=== PATIENT | female | born 2000 | race Caucasian/White ===

== ENCOUNTER 2023-12-22 12:25 | Emergency (ER) | payer OTHER, SELFPAY ==
[2023-12-22] VITALS (8 sets, daily range): BP systolic 119–133; BP diastolic 78–92; PULSE 80–99; RESP 16; TEMP 36.8; O2SAT 89–99; BMI 27.4
[2023-12-22] MEDS: METHYLPREDNISOLONE SOD SUCC 62.5 MG/ML (125) 125 MG IVP (12:59)
--- NOTE | 2023-12-22 14:01 | ED.ALLEREA ---
HPI - Allergic Reaction General Chief complaint: Allergic Reaction Stated complaint: allergic reaction - SOB tongue swelling Time Seen by Provider: 12/22/23 12:29 History of Present Illness HPI narrative: This 23-year-old female comes in reporting an allergic reaction to some pecans. She states that she has a prior reaction to nuts and does carry an EpiPen. She did administer epinephrine to herself prior to arrival. She states that she began to feel some tightness in her throat and felt lightheadedness. She arrives here with normal vital signs and states that her symptoms have improved. This exposure to pecans occurred about half an hour prior to arrival. Related Data Home Medications ?Medication ?Instructions ?Recorded ?Confirmed Vitamin D (with calcium) 12/22/23 epinephrine 0.3 mg/0.3 mL IM 12/22/23 injection, auto-injector [id number] 360 mg/2.4 mL mg subcut 12/22/23 (150 mg/mL) subcut wearable injector (Skyrizi) Allergies Allergy/AdvReac Type Severity Reaction Status Date / Time infliximab [From Remicade] Allergy Severe Anaphylaxis Verified 12/22/23 12:35 vancomycin Allergy Intermediate rashes Verified 12/22/23 12:35 pecans Allergy Severe Anaphylaxis Uncoded 12/22/23 12:35 Review of Systems Status of ROS Reports: 10 or more systems reviewed and unremarkable except as noted in History and below Narrative Constitutional: No fevers, no weight gain or loss. Eyes: No discharge. No vision changes. HENT: No congestion, no sore throat, no ear pain. Cardiovascular: No chest pain, no palpitations. Respiratory: No shortness of breath, no wheezes, no cough. Gastrointestinal: No abdominal pain, no vomiting, no diarrhea. Genitourinary: No dysuria, no hematuria. Musculoskeletal: Normal range of motion. Skin: No rashes, no pruritis. Neurological: No dizziness, weakness, sensory change, speech change. Endo/Heme/Allergies: No bruising or bleeding. No polydipsia. Pysch: no suicidality, no anxiety, no insomnia. All other systems reviewed and are negative. PFSH PFS Social History Smoking Status: Never smoker How often do you have a drink containing alcohol: 4 or more times a week AUDIT-C Alcohol total score: 4 Non-prescribed substance use: denies use Exam Narrative: Exam Narrative: Constitutional: Well-developed, well-nourished, no acute distress. HEENT: Normocephalic, atraumatic. Neck: Normal range of motion. Nontender. Supple. Heart: Regular. No murmurs. Normal rate. Intact distal pulses. Lungs: Clear to auscultation. No chest discomfort. No wheezes, rhonchi, or rales. Abdomen: Normal bowel sounds. Nontender. No rebound tenderness. Genitalia: Deferred. Back: No midline tenderness. Normal range of motion. Extremities: Normal range of motion. No injury. Skin: Intact. No rash. Warm. No erythema or pallor. Neurologic: No altered sensation. No weakness. Alert and oriented. Psychiatric: No suicidality. No anxiety or depression. No insomnia. Nursing notes and vitals signs are reviewed. Const: Vital Signs, click to edit/add: Vital Signs - 24 hr 12/22/23 12:30 Temperature 98.2 F Pulse Rate [Pulse Oximeter] 86 Respiratory Rate 16 Blood Pressure [Le ft Upper Arm] 133/92 H Pulse Oximetry 99 Oxygen Delivery Me thod Room Air Course Vital Signs Vital signs: Initial Vital Signs Temperature 98.2 F 12/22/23 12:30 Temperature Source Temporal Artery Scan 12/22/23 12:30 Pulse Rate 86 12/22/23 12:30 Respiratory Rate 16 12/22/23 12:30 Blood Pressure 133/92 H 12/22/23 12:30 Blood Pressure Mean 105 12/22/23 12:30 Blood Pressure Position Supine 12/22/23 12:30 Pulse Oximetry 99 12/22/23 12:30 Oxygen Delivery Method Room Air 12/22/23 12:30 Vital Signs Temperature 98.2 F 12/22/23 12:30 Pulse Rate 86 12/22/23 12:30 Respiratory Rate 16 12/22/23 12:30 Blood Pressure 133/92 H 12/22/23 12:30 Pulse Oximetry 99 12/22/23 12:30 Oxygen Delivery Method Room Air 12/22/23 12:30 Temperature 98.2 F 12/22/23 12:30 Pulse Rate 86 12/22/23 12:30 Respiratory Rate 16 12/22/23 12:30 Blood Pressure 133/92 H 12/22/23 12:30 Pulse Oximetry 99 12/22/23 12:30 Oxygen Delivery Method Room Air 12/22/23 12:30 Medications Administered Medications: Discontinued Medications Generic Name Dose Route Start Last Admin Trade Name Daniel PRN Reason Stop Dose Admin Methylprednisolone Sodium Succinate 125 mg 12/22/23 12:55 12/22/23 12:59 Methylprednisolone Sod Succ 62.5 Mg/Ml (125) IVP 12/22/23 12:56 125 mg ONCE ONE Administration MDM - Allergic Reaction MDM Narrative Medical decision making narrative: This patient arrives with concern about exposure to nuts prior to arrival and was concerned about an allergic reaction which she has had in the past. She did administer epinephrine to herself prior to arrival and presents here with much improved symptoms and has normal vital signs. The patient did receive an IV dose of Solu-Medrol 125 mg here. She was observed for 2 hours and continues to have no symptoms. She is okay to be discharged home. She states that she does not need a prescription for EpiPen. I recommended use of antihistamine in medication also as needed and directed. Discharge Plan Discharge Clinical Impression: Allergic reaction Patient Disposition: Home, Self-Care Condition: Improved Additional Instructions: Continue current plans. Use [id number] antihistamines also as needed and directed. Follow up with MD or return if worsening. Prescriptions: No Action epinephrine 0.3 mg/0.3 mL auto-injector IM Skyrizi 360 mg/2.4 mL (150 mg/mL) wearable injector subcut Vitamin D (with calcium) Follow Up/Referrals: Birdie Ledezma MD [Primary Care Provider] - Stand Alone Forms: [employer] Info Instructions
== END 2023-12-22 14:18 | disposition home or self-care (01) ==
PROVIDERS: Emergency Provider Emergency Medicine Emergency Medical Services; PCP Family Medicine
DX: R06.02 Shortness of breath (principal); T78.05XA Anaphylactic reaction due to tree nuts and seeds, initial encounter
CPT/HCPCS: 96374; 99283; 99285; J2919